=== PATIENT | male | born 1995 | race Caucasian/White ===

== ENCOUNTER 2021-11-14 17:24 | Emergency (ER) | payer SELFPAY ==
[2021-11-14] MEDS ORDERED: Ondansetron 4 MG/2 ML SDV IVPUSH ONE (17:58)
[2021-11-14] MEDS ORDERED: Sodium Chloride 0.9% 10 ML Syringe FLUSH PRN (17:58)
[2021-11-14] MEDS ORDERED: Sodium Chloride 0.9% 1,000 ML IV SCH (18:00)
[2021-11-14 19:24] LABS: ESTIMATED GFR 106 mL/min (>60)
== END 2021-11-14 20:19 | disposition home or self-care (01) ==
LOC: JD.ED 17:24
DX: R31.9 Hematuria, unspecified (principal); F17.210 Nicotine dependence, cigarettes, uncomplicated; Z86.16 Personal history of COVID-19
CPT/HCPCS: 36415; 74176; 80053; 81001; 85025; 96361; 96374; 99284; J2405; J3490; J7030; 99283

== ENCOUNTER 2021-11-15 09:01 | Emergency (ER) | payer SELFPAY | END 2021-11-15 12:30 | disposition home or self-care (01) | LOC: JD.ED 09:01 | DX: E86.0 Dehydration (principal) | CPT/HCPCS: 81003; 99282; 99283 ==